=== PATIENT | female | born 1990 | race Caucasian/White ===

== ENCOUNTER 2017-03-05 22:18 | Outpatient (CLI) | payer OTHER ==
[~2017-03-05] VITALS: Ht 172.7 cm; Wt 81.0 kg
== END 2017-03-06 00:46 | disposition home or self-care (01) ==
LOC: LDOP 22:18
PROVIDERS: ATTEND Obstetrics & Gynecology
DX: O32.1XX0 Maternal care for breech presentation, not applicable or unspecified (principal); Z3A.37 37 weeks gestation of pregnancy
CPT/HCPCS: 59025; 99211; G0463

== ENCOUNTER 2017-03-09 13:54 | Inpatient (IN) | payer OTHER ==
[~2017-03-09] VITALS: Ht 172.7 cm; Wt 78.2 kg
[2017-03-09] MEDS ORDERED: OXYTOCIN 30U/ 0.9% NaCL 500ML 500 ML IV SCH (14:04)
[2017-03-09] MEDS ORDERED: LACTATED RINGERS 1,000 ML IV SCH ×3 (14:04→16:14)
[2017-03-09] MEDS ORDERED: SODIUM CITRATE/CITRIC ACID 30 ML UDC PO ONE (14:30)
[2017-03-09] MEDS ORDERED: METOCLOPRAMIDE 5 MG/ML, 2ML IV ONE (14:30)
[2017-03-09] MEDS ORDERED: LACTATED RINGERS 1,000 ML IVBOLUS ONE (14:30)
[2017-03-09] MEDS ORDERED: OXYTOCIN 30U/ 0.9% NaCL 500ML 500 ML ONE (14:32)
[2017-03-09] MEDS ORDERED: FENTANYL PF 100 MCG/2ML ONE (14:32)
[2017-03-09] MEDS ORDERED: NEWBORN KIT ONE (14:32)
[2017-03-09 14:46] LABS: HEMOGLOBIN 13.8 g/dL (11.7-16.4)
[2017-03-09] MEDS ORDERED: morphine SULFATE/PF 0.5 MG/ML, 10ML ONE (14:58)
[2017-03-09 15:03] VITALS: BP 124/79
[2017-03-09] MEDS ORDERED: PHENYLEPHRINE 10 MG/ML ONE (15:14)
[2017-03-09] MEDS ORDERED: CEFAZOLIN 1,000 MG ONE (15:14)
[2017-03-09] MEDS ORDERED: ONDANSETRON 2MG/ML, 2ML ONE (15:14)
[2017-03-09] MEDS: OXYTOCIN 30U/ 0.9% NaCL 500ML 500 ML IV SCH (16:14)
[2017-03-09] MEDS ORDERED: FENTANYL PF 100 MCG/2ML IVPush ONE (16:30)
[2017-03-09] MEDS ORDERED: ONDANSETRON 2MG/ML, 2ML IV PRN (16:30)
[2017-03-09] MEDS ORDERED: ACETAMINOPHEN 325 MG TABLET PO PRN ×2 (16:30)
[2017-03-09] MEDS ORDERED: MISOPROSTOL 200 MCG TABLET PR PRN (16:30)
[2017-03-09] MEDS ORDERED: DIPH,PERTUSS(ACELL),TET VAC/PF NC IM-VACC PRN (16:30)
[2017-03-09] MEDS ORDERED: CALCIUM CARBONATE 500 MG TAB.CHEW PO PRN (16:30)
[2017-03-09] MEDS ORDERED: OXYcodone/APAP 5/325MG TABLET PO PRN ×3 (16:30→18:00)
[2017-03-09] MEDS ORDERED: SIMETHICONE 80 MG CHEW TAB PO PRN (16:30)
[2017-03-09] MEDS: LACTATED RINGERS 1,000 ML IV SCH (17:07)
[2017-03-09] MEDS ORDERED: NO SEDATIVES, TRANQUILIZERS OR ANTIEMETICS XX SCH (18:00)
[2017-03-09] MEDS ORDERED: NALOXONE 0.4 MG/ML, 1ML IV PRN (18:00)
[2017-03-09] MEDS ORDERED: HYDROmorphone 1 MG/ML, 1ML IVPush PRN (18:00)
[2017-03-09 18:35] VITALS: BP 116/73
[2017-03-09 19:55] VITALS: BP 105/66
[2017-03-09 23:31] LABS: HEMOGLOBIN 12.1 g/dL (11.7-16.4)
[2017-03-10] VITALS: BP 104/66
[2017-03-10] MEDS: KETOROLAC 30 MG/1 ML IVPush SCH ×4 (01:05→20:20)
[2017-03-10] MEDS: OXYTOCIN 30U/ 0.9% NaCL 500ML 500 ML IV SCH ×3 (02:14→22:14)
[2017-03-10] MEDS: LACTATED RINGERS 1,000 ML IV SCH ×3 (02:14→22:14)
[2017-03-10] MEDS ORDERED: RHOGAM FROM BLOOD BANK 1 NOTE EA IM/IV ONE (03:30)
[2017-03-10 07:15] VITALS: BP 97/58
[2017-03-10] MEDS ORDERED: PRENATAL VIT/IRON/FA 1 EACH TABLET ONE (07:35)
[2017-03-10] MEDS: PRENATAL VIT/IRON/FA 1 EACH TABLET PO SCH (07:53)
[2017-03-10] MEDS: DOCUSATE 100 MG CAPSULE PO PRN (07:53)
[2017-03-10 12:30] VITALS: BP 117/70
[2017-03-10 20:06] VITALS: BP 111/71
[2017-03-11] MEDS: KETOROLAC 30 MG/1 ML IVPush SCH (01:00)
[2017-03-11] MEDS: IBUPROFEN 600 MG TABLET PO PRN ×4 (02:57→23:36)
[2017-03-11 07:45] VITALS: BP 100/80
[2017-03-11] MEDS: PRENATAL VIT/IRON/FA 1 EACH TABLET PO SCH (09:00)
[2017-03-11] MEDS: DOCUSATE 100 MG CAPSULE PO PRN ×2 (09:00→23:36)
[2017-03-11 21:00] VITALS: BP 105/65
[2017-03-12] MEDS: IBUPROFEN 600 MG TABLET PO PRN ×2 (05:20→12:18)
[2017-03-12 06:00] VITALS: BP 105/66
[2017-03-12] MEDS: DOCUSATE 100 MG CAPSULE PO PRN (07:40)
[2017-03-12] MEDS: PRENATAL VIT/IRON/FA 1 EACH TABLET PO SCH (07:41)
[2017-03-12] MEDS ORDERED: OXYC-302 PO (10:31)
[2017-03-12] MEDS ORDERED: IBUP-1222 PO (10:31)
[2017-03-12] MEDS ORDERED: DOCU-30 PO (10:32)
== END 2017-03-12 17:00 | disposition home or self-care (01) | DRG 766 ==
LOC: LDIP 13:54 → 2NW 18:30
PROVIDERS: ADMIT Obstetrics & Gynecology; ATTEND Obstetrics & Gynecology
PROC: 10D00Z1 Extraction of Products of Conception, Low, Open Approach (ICD-10-PCS; principal; 2017-03-09)
PROC: 3E0334Z Introduction of Serum, Toxoid and Vaccine into Peripheral Vein, Percutaneous Approach (ICD-10-PCS; 2017-03-10)
DX: O32.1XX0 Maternal care for breech presentation, not applicable or unspecified (principal); O26.893 Other specified pregnancy related conditions, third trimester; Z37.0 Single live birth; Z3A.38 38 weeks gestation of pregnancy; Z67.41 Type O blood, Rh negative; Z88.8 Allergy status to other drugs, medicaments and biological substances; Z23 Encounter for immunization
CPT/HCPCS: 36415; 82803; 85025; 85461; 86850; 86900; 90715; J0690; J1885; J2274; J2405; J2790; J3010; J2370; J2590; J7120

== ENCOUNTER → 2020-12-04 | Outpatient (CLI) | payer OTHER ==
[~2020-12-04] MED LIST: DOCU-131 PO; IBUP-1222 PO; IBUP-1223 PO; OXYC-302 PO
== END | disposition home or self-care (01) ==
LOC: STAR 12:00
PROVIDERS: ATTEND Obstetrics & Gynecology
DX: Z20.828 Contact with and (suspected) exposure to other viral communicable diseases (principal)
CPT/HCPCS: 87635

== ENCOUNTER 2020-12-05 07:10 | Inpatient (IN) | payer OTHER ==
[~2020-12-05] VITALS: Ht 172.7 cm; Wt 80.9 kg
[~2020-12-05 07:10] MED LIST changes: -IBUP-1223 PO
[2020-12-05] MEDS ORDERED: NEWBORN KIT ONE (09:08)
[2020-12-05] MEDS ORDERED: MISOPROSTOL 200 MCG TABLET ONE (09:08)
[2020-12-05] MEDS ORDERED: OXYTOCIN 30U/ 0.9% NaCL 500ML 500 ML ONE ×2 (09:08→17:33)
[2020-12-05] MEDS ORDERED: LIDOCAINE 1%, 20ML ONE (09:08)
[2020-12-05] MEDS: LACTATED RINGERS 1,000 ML IV SCH ×3 (09:10→11:19)
[2020-12-05] MEDS ORDERED: FENTANYL PF 100 MCG/2ML IVPush PRN (09:30)
[2020-12-05] MEDS ORDERED: TERBUTALINE 1 MG/ML, 1ML SQ PRN (09:30)
[2020-12-05] MEDS ORDERED: TERBUTALINE 1 MG/ML, 1ML IVPush PRN (09:30)
[2020-12-05] MEDS ORDERED: SODIUM CITRATE/CITRIC ACID 30 ML UDC PO PRN (09:30)
[2020-12-05] MEDS ORDERED: OXYTOCIN 30U/ 0.9% NaCL 500ML 500 ML IV ONE (09:30)
[2020-12-05] MEDS ORDERED: ONDANSETRON 2MG/ML, 2ML IVPush PRN ×2 (09:30→12:00)
[2020-12-05] MEDS ORDERED: CALCIUM CARBONATE 500 MG TAB.CHEW PO PRN (09:30)
[2020-12-05] MEDS ORDERED: METOCLOPRAMIDE 5 MG/ML, 2ML IVPush PRN (09:30)
[2020-12-05] MEDS ORDERED: D5%-LACTATED RINGERS 1,000 ML IV SCH (09:30)
[2020-12-05] MEDS ORDERED: FENTANYL PF 100 MCG/2ML IV PRN (09:30)
[2020-12-05] MEDS ORDERED: OXYTOCIN 30U/ 0.9% NaCL 500ML 500 ML IV PRN (09:30)
[2020-12-05 09:39] LABS: BASOPHILS % (AUTO) 0 % (0-1); EOSINOPHILS % (AUTO) 0 % (1-7); LYMPHOCYTES % (AUTO) 14 % (22-44); MEAN CORPUSCULAR HEMOGLOBIN 32.5 pg (27.0-34.8); MEAN CORPUSCULAR HGB CONC 34.7 g/dL (32.4-35.8); MEAN PLATELET VOLUME 10.4 fL (7.4-10.4); MONOCYTES % (AUTO) 7 % (2-9); NEUTROPHILS % (AUTO) 78 % (42-75); PLATELET COUNT 187 x10^3/uL (130-400); RED BLOOD COUNT 4.35 x10^6/uL (3.82-5.3); RED CELL DISTRIBUTION WIDTH 12.5 % (9.6-15.2)
[2020-12-05 09:42] LABS: MD NO
[2020-12-05] MEDS ORDERED: FENTANYL PF 100 MCG/2ML ONE (10:31)
[2020-12-05] MEDS ORDERED: BUPIVACAINE 0.25% ONE (10:32)
[2020-12-05] MEDS ORDERED: LIDOCAINE/PF 1.5% EPI 1:200K, 10 ML ONE (10:40)
[2020-12-05] MEDS ORDERED: FENTANYL/BUPIV./NS/PF 250 ML EPIDCONT SCH (12:00)
[2020-12-05] MEDS ORDERED: EPHEDRINE 50 MG/ML, 1ML IVPush PRN (12:00)
[2020-12-05] MEDS ORDERED: LACTATED RINGERS 1,000 ML IV SCH (12:00)
[2020-12-05] MEDS ORDERED: MISOPROSTOL 200 MCG TABLET PR PRN (17:30)
[2020-12-05] MEDS ORDERED: ONDANSETRON 2MG/ML, 2ML IV PRN (17:30)
[2020-12-05] MEDS: OXYTOCIN 30U/ 0.9% NaCL 500ML 500 ML IV SCH (17:30)
[2020-12-05] MEDS ORDERED: SIMETHICONE 80 MG CHEW TAB PO PRN (17:30)
[2020-12-05] MEDS ORDERED: CARBOPROST TROMETHAMINE 250 MCG/ML, 1ML IM PRN (17:30)
[2020-12-05] MEDS ORDERED: OXYcodone/APAP 5/325MG TABLET PO PRN (17:30)
[2020-12-05] MEDS ORDERED: METHYLERGONOVINE 0.2 MG/ML IM PRN (17:30)
[2020-12-05] MEDS ORDERED: IBUPROFEN 800 MG TABLET ONE (18:07)
[2020-12-05] MEDS: IBUPROFEN 800 MG TABLET PO PRN (18:14)
[2020-12-05 20:00] VITALS: BP 99/61
[2020-12-06] VITALS: BP 95/58
[2020-12-06 01:29] LABS: BASOPHILS % (AUTO) 0 % (0-1); EOSINOPHILS % (AUTO) 0 % (1-7); LYMPHOCYTES % (AUTO) 14 % (22-44); MONOCYTES % (AUTO) 10 % (2-9); NEUTROPHILS % (AUTO) 75 % (42-75); PLATELET COUNT 170 x10^3/uL (130-400); RED BLOOD COUNT 3.52 x10^6/uL (3.82-5.3); RED CELL DISTRIBUTION WIDTH 12.6 % (9.6-15.2)
[2020-12-06 01:39] LABS: MD NO
[2020-12-06] MEDS: OXYTOCIN 30U/ 0.9% NaCL 500ML 500 ML IV SCH (03:30)
[2020-12-06 04:00] VITALS: BP 98/59
[2020-12-06] MEDS: IBUPROFEN 800 MG TABLET PO PRN ×3 (04:19→21:11)
[2020-12-06] MEDS ORDERED: RHOGAM FROM BLOOD BANK 1 NOTE EA IM/IV ONE (04:30)
[2020-12-06] MEDS ORDERED: IBUP-1223 PO (06:19)
[2020-12-06 08:45] VITALS: BP 108/71
[2020-12-06] MEDS: PRENATAL VIT/IRON/FA 1 EACH TABLET PO SCH (09:09)
[2020-12-06] MEDS: DOCUSATE 100 MG CAPSULE PO PRN (09:09)
[2020-12-06] MEDS: OXYcodone/APAP 5/325MG TABLET PO PRN (11:30)
[2020-12-06 12:00] VITALS: BP 100/65
[2020-12-06 16:21] VITALS: BP 92/59
[2020-12-06 20:00] VITALS: BP 102/70
[2020-12-07] MEDS: IBUPROFEN 800 MG TABLET PO PRN (05:32)
[2020-12-07] MEDS: PRENATAL VIT/IRON/FA 1 EACH TABLET PO SCH (08:29)
[2020-12-07] MEDS: DOCUSATE 100 MG CAPSULE PO PRN (08:29)
[2020-12-07] MEDS: OXYcodone/APAP 5/325MG TABLET PO PRN (08:30)
== END 2020-12-07 09:40 | disposition home or self-care (01) | DRG 807 ==
LOC: LDOP 07:10 → LDIP 09:01 → 2NW 19:42
PROVIDERS: ADMIT Obstetrics & Gynecology; ATTEND Obstetrics & Gynecology
PROC: 10E0XZZ Delivery of Products of Conception, External Approach (ICD-10-PCS; principal; 2020-12-05)
PROC: 3E0234Z Introduction of Serum, Toxoid and Vaccine into Muscle, Percutaneous Approach (ICD-10-PCS; 2020-12-06)
DX: O48.0 Post-term pregnancy (principal); Z37.0 Single live birth; Z3A.40 40 weeks gestation of pregnancy; Z20.822 Contact with and (suspected) exposure to COVID-19; O26.893 Other specified pregnancy related conditions, third trimester; Z67.41 Type O blood, Rh negative
CPT/HCPCS: 36415; 85025; 85461; 86592; 86850; 86900; 87635; 87806; G0378; J2790; G0475; J2590; J3010; J7120